=== PATIENT | male | born 1995 | race Caucasian/White ===

== ENCOUNTER 2023-10-09 21:31 | Emergency (ER) | payer OTHER ==
[~2023-10-09] VITALS: Ht 172.7 cm; Wt 80.0 kg
[2023-10-09 21:46] VITALS: TEMP 98.2
[2023-10-09] MEDS: proparacaine 0.5% ophthalmic drops 15ml RIGHTEYE ONE (22:25)
[2023-10-09] MEDS ORDERED: polymyxin B sulf/tmp ophth drops 10ml RIGHTEYE ONE (22:30)
[2023-10-09 22:48] VITALS: BP 120/63; PULSE 78; RESP 16; O2SAT 98
== END 2023-10-09 22:49 | disposition home or self-care (01) ==
LOC: ER 21:33
DX: S05.01XA Injury of conjunctiva and corneal abrasion without foreign body, right eye, initial encounter (principal); Z88.0 Allergy status to penicillin; X58.XXXA Exposure to other specified factors, initial encounter; Y93.89 Activity, other specified; Y92.89 Other specified places as the place of occurrence of the external cause; Y99.8 Other external cause status
CPT/HCPCS: 99283